=== PATIENT | female | born 1940 | race Caucasian/White ===

== ENCOUNTER → 2017-03-28 11:51 | Outpatient (CLI) | payer MEDICARE, SELFPAY ==
[2017-03-28 14:36] LABS: Absolute Lymphocyte Count 1.45 X10^3/ul (0.83-4.51); Absolute Neutrophil Count 4.4 X10^3/uL (2.0-7.7); Basophil# 0.04 X10^3/uL; Basophil% 0.6 % (0-1); Eosinophil# 0.15 X10^3/uL; Eosinophils% 2.2 % (0-5); Hematocrit 40.6 % (37-47); Lymphocyte # 1.45 X10^3/ul (4.0); Lymphocyte % 21.1 % (19-41); Mean Corpuscular Hgb 30.5 pg (27.0-32.0); Mean Corpuscular Volume 95.3 fL (81-99); Monocyte# 0.83 X10^3/uL; Monocyte% 12.1 % (0-10); Neutrophil # 4.38 X10^3/uL (2.7-7.7); Neutrophil % 63.9 % (47-70); Platelet Count 280 K/mm3 (150-450); RBC Distribution Width CV 14.8 % (11.6-14.6); Red Blood Count 4.26 M/mm3 (4.2-5.4); White Blood Count 6.9 K/mm3 (4.4-11.0)
[2017-03-28 14:40] LABS: POSITIVE COUNT NO; POSITIVE DIFFERENTIAL NO; POSITIVE MORPHOLOGY NO
[2017-03-28 14:48] LABS: ALB/GLOB Ratio 0.8 RATIO (0.9-2.4); AST(SGOT) 18 U/L (15-37); Alanine Aminotransfer ALT/SGPT 22 U/L (13-56); Albumin, Serum 3.3 g/dL (3.2-5.0); Alkaline Phosphatase 109 U/L (45-117); Anion Gap 6 (5-15); BUN 14 mg/dL (7-18); BUN/Creat Ratio 18.1 RATIO (10-20); Calcium,Total 8.9 mg/dL (8.5-10.1); Chloride 103 mmol/L (98-107); Creatinine, Serum 0.77 mg/dL (0.55-1.02); EST Glomerular Filtration Rate 77 mL/min (>60); Est Glom Filt Rate - Afr Amer 94 mL/min (>60); Glucose 77 mg/dL (70-110); Potassium 4.6 mmol/L (3.5-5.1); Protein, Total 7.3 g/dL (6.4-8.2); Sodium Level 139 mmol/L (136-145)
== END ==
PROVIDERS: Family Provider Internal Medicine; PCP Internal Medicine; Visit Provider Internal Medicine Rheumatology
DX: M06.09 Rheumatoid arthritis without rheumatoid factor, multiple sites (principal); Z79.899 Other long term (current) drug therapy; H35.30 Unspecified macular degeneration; I48.0 Paroxysmal atrial fibrillation; Z95.0 Presence of cardiac pacemaker; I10 Essential (primary) hypertension; E78.5 Hyperlipidemia, unspecified; G47.33 Obstructive sleep apnea (adult) (pediatric)
CPT/HCPCS: 36415; 80053; 85025

== ENCOUNTER → 2017-06-21 11:39 | Outpatient (CLI) | payer MEDICARE, SELFPAY ==
[2017-06-21 14:09] LABS: Absolute Lymphocyte Count 1.69 X10^3/ul (0.83-4.51); Absolute Neutrophil Count 4.5 X10^3/uL (2.0-7.7); Basophil# 0.02 X10^3/uL; Basophil% 0.3 % (0-1); Eosinophil# 0.05 X10^3/uL; Eosinophils% 0.7 % (0-5); Hematocrit 44.7 % (37-47); Hemoglobin 13.8 g/dl (12.0-15.0); Lymphocyte # 1.69 X10^3/ul (4.0); Mean Corp Hgb Conc 30.9 g/gl (32-36); Mean Corpuscular Hgb 30.3 pg (27.0-32.0); Mean Corpuscular Volume 98.2 fL (81-99); Mean Platelet Vol. 10.1 fl (6.2-12.0); Monocyte% 7.4 % (0-10); Neutrophil % 66.5 % (47-70); Platelet Count 240 K/mm3 (150-450); RBC Distribution Width SD 53.6 fl (35.1-43.9); Red Blood Count 4.55 M/mm3 (4.2-5.4); White Blood Count 6.8 K/mm3 (4.4-11.0)
[2017-06-21 14:12] LABS: POSITIVE COUNT NO; POSITIVE DIFFERENTIAL NO; POSITIVE MORPHOLOGY NO
[2017-06-21 14:23] LABS: ALB/GLOB Ratio 0.9 RATIO (0.9-2.4); AST(SGOT) 26 U/L (15-37); Alanine Aminotransfer ALT/SGPT 23 U/L (13-56); Albumin, Serum 3.6 g/dL (3.2-5.0); Alkaline Phosphatase 116 U/L (45-117); Anion Gap 8 (5-15); BUN 11 mg/dL (7-18); BUN/Creat Ratio 12.8 RATIO (10-20); Calcium,Total 9.6 mg/dL (8.5-10.1); Chloride 107 mmol/L (98-107); Creatinine, Serum 0.86 mg/dL (0.55-1.02); EST Glomerular Filtration Rate 68 mL/min (>60); Est Glom Filt Rate - Afr Amer 83 mL/min (>60); Globulin 4.1 g/dL (2.2-4.2); Glucose 80 mg/dL (74-106); Potassium 4.5 mmol/L (3.5-5.1); Protein, Total 7.7 g/dL (6.4-8.2); Sodium Level 143 mmol/L (136-145)
== END ==
PROVIDERS: Family Provider Internal Medicine; PCP Internal Medicine; Visit Provider Internal Medicine Rheumatology
DX: M06.09 Rheumatoid arthritis without rheumatoid factor, multiple sites (principal); Z79.899 Other long term (current) drug therapy; H35.30 Unspecified macular degeneration; I48.0 Paroxysmal atrial fibrillation; Z95.0 Presence of cardiac pacemaker; I10 Essential (primary) hypertension; E78.5 Hyperlipidemia, unspecified; G47.33 Obstructive sleep apnea (adult) (pediatric)
CPT/HCPCS: 36415; 80053; 85025

== ENCOUNTER → 2018-06-06 | Outpatient (CLI) | payer MEDICARE, SELFPAY ==
[2016-02-23 14:16] VITALS: BMI 24.9
[2018-06-06 09:40] LABS: International Normalized Ratio 2.1; Prothrombin Time (Protime)PT. 23.5 SECONDS (11.7-14.9)
== END | disposition home or self-care (01) ==
LOC: LABSPEC 09:17
PROVIDERS: Family Provider Internal Medicine; PCP Internal Medicine; Referring Provider Internal Medicine; Visit Provider Internal Medicine
DX: I48.0 Paroxysmal atrial fibrillation (principal); Z79.01 Long term (current) use of anticoagulants
CPT/HCPCS: 85610

== ENCOUNTER 2018-11-22 11:43 | Outpatient (RCR) | payer MEDICARE, SELFPAY ==
[2018-11-22 10:37] VITALS: BMI 25.4
[2018-11-22 12:44] LABS: International Normalized Ratio 2.4; Prothrombin Time (Protime)PT. 26.1 SECONDS (11.7-14.9)
== END 2018-11-27 18:00 | disposition home or self-care (01) ==
LOC: LAB 11:43
PROVIDERS: Family Provider Internal Medicine; PCP Internal Medicine; Referring Provider Internal Medicine Cardiovascular Disease; Visit Provider Internal Medicine Cardiovascular Disease
DX: I48.0 Paroxysmal atrial fibrillation (principal)
CPT/HCPCS: 36415; 85610

== ENCOUNTER → 2018-12-12 10:49 | Outpatient (CLI) | payer MEDICARE, SELFPAY ==
[2018-11-22 10:37] VITALS: BMI 25.4
--- NOTE | 2018-12-12 10:52 | ECHOD_ITS ---
Reason For Study: MVP Procedure This was a 2D Doppler, Color Flow transthoracic echocardiogram. The exam was of adequate technical quality. Exam performed in department. Left Ventricle Normal LV size. Left ventricular systolic function is normal. The estimated ejection fraction is 55 %. Unable to assess diastolic dysfunction. No regional wall motion abnormalities noted. Right Ventricle Normal RV size. ICD or pacer leads identified within the right ventricle. Normal systolic function. Atria The left atrium is moderately enlarged. The right atrium is mildly enlarged. ICD or pacer leads identified within the right atrium. No doppler evidence for ASD. Mitral Valve There is no mitral annular calcification. Moderate diffuse mitral valve thickening. Myxomatous mitral valve. Moderate mitral valve prolapse. Moderately severe (3+) mitral valve insufficiency. Tricuspid Valve Mild diffuse thickening of the tricuspid valve. Moderate (2+) tricuspid valve insufficiency. Right ventricular systolic pressure estimated to be 32 mmHg. Aortic Valve Trisinus/trileaflet aortic valve. Mild diffuse aortic valve thickening. Pulmonic Valve The pulmonic valve is not well visualized. Mild (1+) eccentric pulmonic valve insufficiency. Great Vessels Normal sized aortic root. Pericardium/Pleural No pericardial effusion. MMode/2D Measurements & Calculations LVIDd: 3.6 cm IVSd: 1.1 cm Ao root diam: 3.2 cm LVIDs: 2.5 cm LVPWd: 1.2 cm RVDd: 3.3 cm FS: 30.1 % LAV(MOD-bp): 63.2 ml LA A4 area: 18.2 cm2 LA dimension(2D): 4.3 cm LAV(MOD-bp) Indexed: 39.3 ml/m2 LAV(MOD-sp2): 67.7 ml LAV(MOD-sp4): 51.9 ml RA A4 area: 16.9 cm2 Doppler Measurements & Calculations Ao V2 max: 68.1 cm/sec LV V1 max: 53.7 cm/sec PA V2 max: 64.0 cm/sec Ao max P.9 mmHg LV V1 max P.2 mmHg PI end-d sylvester: 104.0 cm/sec TR max sylvester: 267.1 cm/sec TR max P.6 mmHg Interpretation Summary Left ventricular systolic function is normal. The estimated ejection fraction is 55 %. The left atrium is moderately enlarged. The right atrium is mildly enlarged. Myxomatous mitral valve. Moderate diffuse mitral valve thickening. Moderate mitral valve prolapse. Moderately severe (3+) mitral valve insufficiency. Mild diffuse thickening of the tricuspid valve. Moderate (2+) tricuspid valve insufficiency. Mild diffuse aortic valve thickening. Mild (1+) eccentric pulmonic valve insufficiency. Right ventricular systolic pressure estimated to be 32 mmHg. Unable to assess diastolic dysfunction. ICD or pacer leads identified within the right atrium ICD or pacer leads identified within the right ventricle. Ordering Physician: Leighton Moreno Referring Physician: JOSSELIN MAYERS Performed By: Yadira Mar, RDCS, RVT
== END ==
PROVIDERS: Family Provider Internal Medicine; PCP Internal Medicine; Referring Provider Internal Medicine Cardiovascular Disease; Visit Provider Internal Medicine Cardiovascular Disease
DX: I48.0 Paroxysmal atrial fibrillation (principal); I34.1 Nonrheumatic mitral (valve) prolapse
CPT/HCPCS: 93306

== ENCOUNTER 2018-12-19 11:33 | Outpatient (RCR) | payer MEDICARE, SELFPAY ==
[2018-12-19 13:12] LABS: International Normalized Ratio 2.5; Prothrombin Time (Protime)PT. 26.6 SECONDS (11.7-14.9)
== END 2018-12-19 18:00 | disposition home or self-care (01) ==
LOC: LAB 11:33
PROVIDERS: Family Provider Internal Medicine; PCP Internal Medicine; Referring Provider Internal Medicine Cardiovascular Disease; Visit Provider Internal Medicine Cardiovascular Disease
DX: I48.0 Paroxysmal atrial fibrillation (principal)
CPT/HCPCS: 36415; 85610

== ENCOUNTER 2019-01-18 11:17 | Outpatient (RCR) | payer MEDICARE, SELFPAY ==
[2019-01-18 12:56] LABS: International Normalized Ratio 2.5; Prothrombin Time (Protime)PT. 27.1 SECONDS (11.7-14.9)
== END 2019-01-18 18:00 | disposition home or self-care (01) ==
LOC: LAB 11:17
PROVIDERS: Family Provider Internal Medicine; PCP Internal Medicine; Referring Provider Internal Medicine Cardiovascular Disease; Visit Provider Internal Medicine Cardiovascular Disease
DX: I48.0 Paroxysmal atrial fibrillation (principal)
CPT/HCPCS: 36415; 85610

== ENCOUNTER 2019-02-15 15:29 | Outpatient (RCR) | payer MEDICARE, SELFPAY ==
[2019-02-15 17:47] LABS: International Normalized Ratio 2.8; Prothrombin Time (Protime)PT. 29.2 SECONDS (11.7-14.9)
== END 2019-02-15 18:00 | disposition home or self-care (01) ==
LOC: LAB 15:29
PROVIDERS: Family Provider Internal Medicine; PCP Internal Medicine; Referring Provider Internal Medicine Cardiovascular Disease; Visit Provider Internal Medicine Cardiovascular Disease
DX: I48.0 Paroxysmal atrial fibrillation (principal)
CPT/HCPCS: 36415; 85610

== ENCOUNTER 2019-03-15 11:06 | Outpatient (RCR) | payer MEDICARE, SELFPAY ==
[2019-03-15 11:38] LABS: Prothrombin Time (Protime)PT. 22.6 SECONDS (11.7-14.9)
== END 2019-03-15 18:00 | disposition home or self-care (01) ==
LOC: LAB 11:06
PROVIDERS: Family Provider Internal Medicine; PCP Internal Medicine; Referring Provider Internal Medicine Cardiovascular Disease; Visit Provider Internal Medicine Cardiovascular Disease
DX: I48.0 Paroxysmal atrial fibrillation (principal)
CPT/HCPCS: 36415; 85610

== ENCOUNTER 2019-04-11 11:53 | Outpatient (RCR) | payer MEDICARE, SELFPAY ==
[2019-04-11 12:47] LABS: International Normalized Ratio 2.3
== END 2019-04-11 18:00 | disposition home or self-care (01) ==
LOC: LAB 11:53
PROVIDERS: Family Provider Internal Medicine; PCP Internal Medicine; Referring Provider Internal Medicine Cardiovascular Disease; Visit Provider Internal Medicine Cardiovascular Disease
DX: I48.0 Paroxysmal atrial fibrillation (principal)
CPT/HCPCS: 36415; 85610

== ENCOUNTER 2019-05-09 13:07 | Outpatient (RCR) | payer MEDICARE, SELFPAY ==
[2019-05-09 14:21] LABS: International Normalized Ratio 2.2; Prothrombin Time (Protime)PT. 24.2 SECONDS (11.7-14.9)
== END 2019-05-09 18:00 | disposition home or self-care (01) ==
LOC: LAB 13:07
PROVIDERS: Family Provider Internal Medicine; PCP Internal Medicine; Referring Provider Internal Medicine Cardiovascular Disease; Visit Provider Internal Medicine Cardiovascular Disease
DX: I48.0 Paroxysmal atrial fibrillation (principal)
CPT/HCPCS: 36415; 85610

== ENCOUNTER 2019-06-20 09:59 | Outpatient (RCR) | payer MEDICARE, SELFPAY ==
[2019-06-20 11:07] LABS: International Normalized Ratio 2.4; Prothrombin Time (Protime)PT. 25.4 SECONDS (11.7-14.9)
== END 2019-06-28 18:00 | disposition home or self-care (01) ==
LOC: LAB 09:59
PROVIDERS: Family Provider Internal Medicine; PCP Internal Medicine; Referring Provider Internal Medicine Cardiovascular Disease; Visit Provider Internal Medicine Cardiovascular Disease
DX: I48.0 Paroxysmal atrial fibrillation (principal)
CPT/HCPCS: 36415; 85610

== ENCOUNTER 2019-07-18 10:46 | Outpatient (RCR) | payer MEDICARE, SELFPAY ==
[2019-07-18 11:36] LABS: International Normalized Ratio 2.2; Prothrombin Time (Protime)PT. 24.2 SECONDS (11.7-14.9)
== END 2019-07-18 18:00 | disposition home or self-care (01) ==
LOC: LAB 10:46
PROVIDERS: Family Provider Internal Medicine; PCP Internal Medicine; Referring Provider Internal Medicine Cardiovascular Disease; Visit Provider Internal Medicine Cardiovascular Disease
DX: I48.0 Paroxysmal atrial fibrillation (principal)
CPT/HCPCS: 36415; 85610

== ENCOUNTER 2019-08-15 11:16 | Outpatient (RCR) | payer MEDICARE, SELFPAY ==
[2019-08-15 12:13] LABS: International Normalized Ratio 2.2
== END 2019-08-15 18:00 | disposition home or self-care (01) ==
LOC: LAB 11:16
PROVIDERS: Family Provider Internal Medicine; PCP Internal Medicine; Referring Provider Internal Medicine Cardiovascular Disease; Visit Provider Internal Medicine Cardiovascular Disease
DX: I48.0 Paroxysmal atrial fibrillation (principal)
CPT/HCPCS: 36415; 85610

== ENCOUNTER 2019-09-13 14:24 | Outpatient (RCR) | payer MEDICARE, SELFPAY ==
[2019-08-20 10:42] VITALS: BMI 24.7
[2019-09-13 16:08] LABS: Prothrombin Time (Protime)PT. 21.9 SECONDS (11.7-14.9)
== END 2019-09-13 18:00 | disposition home or self-care (01) ==
LOC: LAB 14:24
PROVIDERS: Family Provider Internal Medicine; PCP Internal Medicine; Referring Provider Internal Medicine Cardiovascular Disease; Visit Provider Internal Medicine Cardiovascular Disease
DX: I48.0 Paroxysmal atrial fibrillation (principal)
CPT/HCPCS: 36415; 85610

== ENCOUNTER 2019-10-10 10:41 | Outpatient (RCR) | payer MEDICARE, SELFPAY ==
[2019-08-20 10:42] VITALS: BMI 24.7
[2019-10-10 11:47] LABS: International Normalized Ratio 2.1; Prothrombin Time (Protime)PT. 23.4 SECONDS (11.7-14.9)
== END 2019-10-29 18:00 | disposition home or self-care (01) ==
LOC: LAB 10:41
PROVIDERS: Family Provider Internal Medicine; PCP Internal Medicine; Referring Provider Internal Medicine Cardiovascular Disease; Visit Provider Internal Medicine Cardiovascular Disease
DX: I48.0 Paroxysmal atrial fibrillation (principal)
CPT/HCPCS: 36415; 85610

== ENCOUNTER 2019-11-07 10:42 | Outpatient (RCR) | payer MEDICARE, SELFPAY ==
[2019-08-20 10:42] VITALS: BMI 24.7
[2019-11-07 11:31] LABS: International Normalized Ratio 2.4; Prothrombin Time (Protime)PT. 26.1 SECONDS (11.7-14.9)
== END 2019-11-07 18:00 | disposition home or self-care (01) ==
LOC: LAB 10:42
PROVIDERS: Family Provider Internal Medicine; PCP Internal Medicine; Referring Provider Internal Medicine Cardiovascular Disease; Visit Provider Internal Medicine Cardiovascular Disease
DX: I48.0 Paroxysmal atrial fibrillation (principal)
CPT/HCPCS: 36415; 85610

== ENCOUNTER 2019-12-05 10:36 | Outpatient (RCR) | payer MEDICARE, SELFPAY ==
[2019-11-21 13:41] VITALS: BMI 25.0
[2019-12-05 11:33] LABS: International Normalized Ratio 2.7; Prothrombin Time (Protime)PT. 28.1 SECONDS (11.7-14.9)
== END 2019-12-05 18:00 | disposition home or self-care (01) ==
LOC: LAB 10:36
PROVIDERS: Family Provider Internal Medicine; PCP Internal Medicine; Referring Provider Internal Medicine Cardiovascular Disease; Visit Provider Internal Medicine Cardiovascular Disease
DX: I48.0 Paroxysmal atrial fibrillation (principal)
CPT/HCPCS: 36415; 85610

== ENCOUNTER 2020-01-02 11:46 | Outpatient (RCR) | payer MEDICARE, SELFPAY ==
[2019-11-21 13:41] VITALS: BMI 25.0
[2020-01-02 12:07] LABS: Prothrombin Time (Protime)PT. 21.7 SECONDS (11.7-14.9)
== END 2020-01-02 18:00 | disposition home or self-care (01) ==
LOC: LAB 11:46
PROVIDERS: Family Provider Internal Medicine; PCP Internal Medicine; Referring Provider Internal Medicine Cardiovascular Disease; Visit Provider Internal Medicine Cardiovascular Disease
DX: I48.0 Paroxysmal atrial fibrillation (principal); Z79.01 Long term (current) use of anticoagulants
CPT/HCPCS: 36415; 85610

== ENCOUNTER 2020-02-01 10:28 | Outpatient (RCR) | payer MEDICARE, SELFPAY ==
[2019-11-21 13:41] VITALS: BMI 25.0
[2020-02-01 11:19] LABS: International Normalized Ratio 2.9; Prothrombin Time (Protime)PT. 30.1 SECONDS (11.7-14.9)
== END 2020-02-01 18:00 | disposition home or self-care (01) ==
LOC: LAB 10:28
PROVIDERS: Family Provider Internal Medicine; PCP Internal Medicine; Referring Provider Internal Medicine Cardiovascular Disease; Visit Provider Internal Medicine Cardiovascular Disease
DX: I48.0 Paroxysmal atrial fibrillation (principal); Z79.01 Long term (current) use of anticoagulants
CPT/HCPCS: 36415; 85610

== ENCOUNTER 2020-03-18 14:59 | Outpatient (RCR) | payer MEDICARE, SELFPAY ==
[2019-11-21 13:41] VITALS: BMI 25.0
[2020-03-05 16:50] LABS: International Normalized Ratio 1.9; Prothrombin Time (Protime)PT. 21.3 SECONDS (11.7-14.9)
[2020-03-18 15:59] LABS: International Normalized Ratio 1.9; Prothrombin Time (Protime)PT. 21.3 SECONDS (11.7-14.9)
== END 2020-03-18 18:00 | disposition home or self-care (01) ==
LOC: LAB 14:59
PROVIDERS: Family Provider Internal Medicine; PCP Internal Medicine; Referring Provider Internal Medicine Cardiovascular Disease; Visit Provider Internal Medicine Cardiovascular Disease
DX: I48.0 Paroxysmal atrial fibrillation (principal); Z79.01 Long term (current) use of anticoagulants
CPT/HCPCS: 36415; 85610

== ENCOUNTER 2020-04-23 12:58 | Outpatient (RCR) | payer MEDICARE, SELFPAY ==
[2019-11-21 13:41] VITALS: BMI 25.0
[2020-04-02 12:17] LABS: International Normalized Ratio 2.7; Prothrombin Time (Protime)PT. 27.9 SECONDS (11.7-14.9)
[2020-04-23 15:04] LABS: International Normalized Ratio 1.8; Prothrombin Time (Protime)PT. 20.3 SECONDS (11.7-14.9)
== END 2020-04-23 18:00 | disposition home or self-care (01) ==
LOC: LAB 12:58
PROVIDERS: Family Provider Internal Medicine; PCP Internal Medicine; Referring Provider Internal Medicine Cardiovascular Disease; Visit Provider Internal Medicine Cardiovascular Disease
DX: I48.0 Paroxysmal atrial fibrillation (principal); Z79.01 Long term (current) use of anticoagulants
CPT/HCPCS: 36415; 85610

== ENCOUNTER 2020-05-21 10:55 | Outpatient (RCR) | payer MEDICARE, SELFPAY ==
[2019-11-21 13:41] VITALS: BMI 25.0
[2020-05-07 11:08] LABS: Prothrombin Time (Protime)PT. 21.9 SECONDS (11.7-14.9)
[2020-05-21 11:34] LABS: International Normalized Ratio 1.8; Prothrombin Time (Protime)PT. 20.6 SECONDS (11.7-14.9)
== END 2020-05-21 18:00 | disposition home or self-care (01) ==
LOC: LAB 10:55
PROVIDERS: Family Provider Internal Medicine; PCP Internal Medicine; Referring Provider Internal Medicine Cardiovascular Disease; Visit Provider Internal Medicine Cardiovascular Disease
DX: I48.0 Paroxysmal atrial fibrillation (principal); Z79.01 Long term (current) use of anticoagulants
CPT/HCPCS: 36415; 85610

== ENCOUNTER 2020-06-25 09:22 | Outpatient (RCR) | payer MEDICARE, SELFPAY ==
[2019-11-21 13:41] VITALS: BMI 25.0
[2020-06-04 15:26] LABS: International Normalized Ratio 1.9; Prothrombin Time (Protime)PT. 21.1 SECONDS (11.7-14.9)
[2020-06-11 13:30] LABS: International Normalized Ratio 2.9; Prothrombin Time (Protime)PT. 29.8 SECONDS (11.7-14.9)
[2020-06-25 09:50] LABS: International Normalized Ratio 2.3; Prothrombin Time (Protime)PT. 24.2 SECONDS (11.7-14.9)
== END 2020-06-25 18:00 | disposition home or self-care (01) ==
LOC: LAB 09:22
PROVIDERS: Family Provider Internal Medicine; PCP Internal Medicine; Referring Provider Internal Medicine Cardiovascular Disease; Visit Provider Internal Medicine Cardiovascular Disease
DX: I48.0 Paroxysmal atrial fibrillation (principal); Z79.01 Long term (current) use of anticoagulants
CPT/HCPCS: 36415; 85610

== ENCOUNTER 2020-07-16 10:28 | Outpatient (RCR) | payer MEDICARE, SELFPAY ==
[2019-11-21 13:41] VITALS: BMI 25.0
[2020-07-16 12:03] LABS: Prothrombin Time (Protime)PT. 21.6 SECONDS (11.7-14.9)
== END 2020-07-16 18:00 | disposition home or self-care (01) ==
LOC: LAB 10:28
PROVIDERS: Family Provider Internal Medicine; PCP Internal Medicine; Referring Provider Internal Medicine Cardiovascular Disease; Visit Provider Internal Medicine Cardiovascular Disease
DX: I48.0 Paroxysmal atrial fibrillation (principal); Z79.01 Long term (current) use of anticoagulants
CPT/HCPCS: 36415; 85610

== ENCOUNTER 2020-08-06 10:29 | Outpatient (RCR) | payer MEDICARE, SELFPAY ==
[2019-11-21 13:41] VITALS: BMI 25.0
[2020-08-06 11:54] LABS: International Normalized Ratio 2.4; Prothrombin Time (Protime)PT. 25.5 SECONDS (11.7-14.9)
== END 2020-08-06 18:00 | disposition home or self-care (01) ==
LOC: LAB 10:29
PROVIDERS: Family Provider Internal Medicine; PCP Internal Medicine; Referring Provider Internal Medicine Cardiovascular Disease; Visit Provider Internal Medicine Cardiovascular Disease
DX: I48.0 Paroxysmal atrial fibrillation (principal); Z79.01 Long term (current) use of anticoagulants
CPT/HCPCS: 36415; 85610

== ENCOUNTER 2020-09-03 10:22 | Outpatient (RCR) | payer MEDICARE, SELFPAY ==
[2019-11-21 13:41] VITALS: BMI 25.0
[2020-09-03 11:55] LABS: International Normalized Ratio 2.3; Prothrombin Time (Protime)PT. 24.8 SECONDS (11.7-14.9)
== END 2020-09-03 18:00 | disposition home or self-care (01) ==
LOC: LAB 10:22
PROVIDERS: Family Provider Internal Medicine; PCP Internal Medicine; Referring Provider Internal Medicine Cardiovascular Disease; Visit Provider Internal Medicine Cardiovascular Disease
DX: I48.0 Paroxysmal atrial fibrillation (principal); Z79.01 Long term (current) use of anticoagulants
CPT/HCPCS: 36415; 85610

== ENCOUNTER 2020-10-01 15:40 | Outpatient (RCR) | payer MEDICARE, SELFPAY ==
[2019-11-21 13:41] VITALS: BMI 25.0
[2020-10-01 14:46] VITALS: BMI 24.7
[2020-10-01 17:22] LABS: Prothrombin Time (Protime)PT. 30.2 SECONDS (11.7-14.9)
== END 2020-10-01 18:00 | disposition home or self-care (01) ==
LOC: LAB 15:40
PROVIDERS: Family Provider Internal Medicine; PCP Internal Medicine; Referring Provider Internal Medicine Cardiovascular Disease; Visit Provider Internal Medicine Cardiovascular Disease
DX: I48.0 Paroxysmal atrial fibrillation (principal); Z79.01 Long term (current) use of anticoagulants
CPT/HCPCS: 36415; 85610

== ENCOUNTER → 2020-10-15 12:37 | Outpatient (CLI) | payer MEDICARE, SELFPAY ==
[2020-10-01 14:46] VITALS: BMI 24.7
--- NOTE | 2020-10-15 12:39 | ECHOD_ITS ---
Reason For Study: MVP Procedure This was a 2D Doppler, Color Flow transthoracic echocardiogram. Exam performed in department. Left Ventricle Normal LV size. Left ventricular systolic function is normal. The estimated ejection fraction is 55 %. Transmitral diastolic flow velocities suggest moderate (stage 2) diastolic dysfunction (pseudonormal pattern). No regional wall motion abnormalities noted. Right Ventricle Normal RV size. ICD or pacer leads identified within the right ventricle. Normal systolic function. Atria The left atrium is moderately enlarged. The right atrium is mildly enlarged. ICD or pacer leads identified within the right atrium. No doppler evidence for ASD. Mitral Valve There is no mitral annular calcification. Moderate diffuse mitral valve thickening. Myxomatous mitral valve. Moderate mitral valve prolapse. Moderate (2+) mitral valve insufficiency. Tricuspid Valve Mild diffuse thickening of the tricuspid valve. Moderate (2+) eccentric tricuspid valve insufficiency. Right ventricular systolic pressure estimated to be 35 mmHg. Aortic Valve Trisinus/trileaflet aortic valve. Mild diffuse aortic valve thickening. Mild focal aortic valve calcification. Pulmonic Valve The pulmonic valve is not well visualized. Mild (1+) pulmonic valve insufficiency. Great Vessels Normal sized aortic root. Pericardium/Pleural No pericardial effusion. MMode/2D Measurements & Calculations LVIDd: 4.2 cm IVSd: 1.2 cm Ao root diam: 3.1 cm LVIDs: 2.5 cm LVPWd: 1.2 cm RVDd: 3.4 cm FS: 40.4 % LAV(MOD-bp): 56.8 ml LVAd ap4: 20.5 cm2 SV(MOD-sp4): 31.1 ml LAV(MOD-bp) Indexed: 36.1 ml/m2 LVLd ap4: 6.3 cm LAV(MOD-sp2): 59.2 ml EDV(MOD-sp4): 55.1 ml LAV(MOD-sp4): 50.2 ml EDV(sp4-el): 56.4 ml LVAs ap4: 12.4 cm2 LVLs ap4: 5.3 cm ESV(MOD-sp4): 24.0 ml ESV(sp4-el): 24.7 ml EF(MOD-sp4): 56.4 % EF(sp4-el): 56.1 % SV(sp4-el): 31.7 ml LA A4 area: 19.1 cm2 LA dimension(2D): 4.3 cm RA A4 area: 17.0 cm2 Doppler Measurements & Calculations MV E max adolfo: 91.0 cm/sec Lat Peak E' Adolfo: 6.4 cm/sec Med Peak E' Adolfo: 5.7 cm/sec MV A max adolfo: 75.9 cm/sec E/E' lat: 14.2 E/E' med: 16.0 MV E/A: 1.2 Ao V2 max: 66.9 cm/sec LV V1 max: 56.2 cm/sec PA V2 max: 58.7 cm/sec Ao max P.8 mmHg LV V1 max P.3 mmHg Ao V2 mean: 51.1 cm/sec Ao mean P.1 mmHg Ao V2 VTI: 16.5 cm TR max adolfo: 284.6 cm/sec TR max P.4 mmHg ECHO/Echo Complete Interpretation Summary Left ventricular systolic function is normal. The estimated ejection fraction is 55 %. The left atrium is moderately enlarged. The right atrium is mildly enlarged. Myxomatous mitral valve. Moderate mitral valve prolapse. Moderate diffuse mitral valve thickening. Moderate (2+) mitral valve insufficiency. Mild diffuse thickening of the tricuspid valve. Moderate (2+) eccentric tricuspid valve insufficiency. Mild diffuse aortic valve thickening. Mild focal aortic valve calcification. Mild (1+) pulmonic valve insufficiency. Right ventricular systolic pressure estimated to be 35 mmHg. Transmitral diastolic flow velocities suggest diastolic dysfunction (pseudonorm al pattern). ICD or pacer leads identified within the right atrium ICD or pacer leads identified within the right ventricle. Ordering Physician: Leighton Moreno Referring Physician: Martha Norton Performed By: Nel Avila, RDCS, RVT
== END ==
PROVIDERS: PCP Internal Medicine; Referring Provider Internal Medicine Cardiovascular Disease; Visit Provider Internal Medicine Cardiovascular Disease
DX: I34.0 Nonrheumatic mitral (valve) insufficiency (principal)
CPT/HCPCS: 93306

== ENCOUNTER 2020-11-26 10:22 | Outpatient (RCR) | payer MEDICARE, SELFPAY ==
[2020-10-29 00:33] VITALS: BMI 24.7
[2020-10-29 11:48] LABS: International Normalized Ratio 2.8; Prothrombin Time (Protime)PT. 28.7 SECONDS (11.7-14.9)
[2020-11-26 12:24] LABS: International Normalized Ratio 2.9; Prothrombin Time (Protime)PT. 29.9 SECONDS (11.7-14.9)
== END 2020-11-26 18:00 | disposition home or self-care (01) ==
LOC: LAB 10:22
PROVIDERS: Family Provider Internal Medicine; PCP Internal Medicine; Referring Provider Internal Medicine Cardiovascular Disease; Visit Provider Internal Medicine Cardiovascular Disease
DX: I48.0 Paroxysmal atrial fibrillation (principal); Z79.01 Long term (current) use of anticoagulants
CPT/HCPCS: 36415; 85610

== ENCOUNTER 2020-12-24 12:03 | Outpatient (RCR) | payer MEDICARE, SELFPAY ==
[2020-11-28 00:35] VITALS: BMI 24.7
[2020-12-24 13:55] LABS: Prothrombin Time (Protime)PT. 22.1 SECONDS (11.7-14.9)
== END 2020-12-28 05:04 | disposition home or self-care (01) ==
LOC: LAB 12:03
PROVIDERS: Family Provider Internal Medicine; PCP Internal Medicine; Referring Provider Internal Medicine Cardiovascular Disease; Visit Provider Internal Medicine Cardiovascular Disease
DX: I48.0 Paroxysmal atrial fibrillation (principal); Z79.01 Long term (current) use of anticoagulants
CPT/HCPCS: 36415; 85610

== ENCOUNTER 2021-01-21 10:50 | Outpatient (RCR) | payer MEDICARE, SELFPAY ==
[2020-12-28 05:04] VITALS: BMI 24.7
[2021-01-21 11:32] LABS: International Normalized Ratio 1.7; Prothrombin Time (Protime)PT. 18.9 SECONDS (11.7-14.9)
== END 2021-01-27 18:00 | disposition home or self-care (01) ==
LOC: LAB 10:50
PROVIDERS: Family Provider Internal Medicine; PCP Internal Medicine; Referring Provider Internal Medicine Cardiovascular Disease; Visit Provider Internal Medicine Cardiovascular Disease
DX: I48.0 Paroxysmal atrial fibrillation (principal); Z79.01 Long term (current) use of anticoagulants
CPT/HCPCS: 36415; 85610

== ENCOUNTER 2021-02-25 10:34 | Outpatient (RCR) | payer MEDICARE, SELFPAY ==
[2021-01-28 03:48] VITALS: BMI 24.7
[2021-01-28 11:35] LABS: International Normalized Ratio 2.5; Prothrombin Time (Protime)PT. 26.5 SECONDS (11.7-14.9)
[2021-02-11 11:07] LABS: International Normalized Ratio 1.8; Prothrombin Time (Protime)PT. 20.4 SECONDS (11.7-14.9)
[2021-02-25 11:22] LABS: International Normalized Ratio 2.2; Prothrombin Time (Protime)PT. 23.5 SECONDS (11.7-14.9)
== END 2021-02-28 18:00 | disposition home or self-care (01) ==
LOC: LAB 10:34
PROVIDERS: Family Provider Internal Medicine; PCP Internal Medicine; Referring Provider Internal Medicine Cardiovascular Disease; Visit Provider Internal Medicine Cardiovascular Disease
DX: I48.0 Paroxysmal atrial fibrillation (principal); Z79.01 Long term (current) use of anticoagulants
CPT/HCPCS: 36415; 85610

== ENCOUNTER 2021-03-18 10:47 | Outpatient (RCR) | payer MEDICARE, SELFPAY ==
[2021-03-02 02:33] VITALS: BMI 24.7
[2021-03-18 11:17] LABS: International Normalized Ratio 2.5; Prothrombin Time (Protime)PT. 25.8 SECONDS (11.7-14.9)
== END 2021-03-30 18:00 | disposition home or self-care (01) ==
LOC: LAB 10:47
PROVIDERS: Family Provider Internal Medicine; PCP Internal Medicine; Referring Provider Internal Medicine Cardiovascular Disease; Visit Provider Internal Medicine Cardiovascular Disease
DX: I48.0 Paroxysmal atrial fibrillation (principal); Z79.01 Long term (current) use of anticoagulants
CPT/HCPCS: 36415; 85610

== ENCOUNTER 2021-04-15 13:59 | Outpatient (RCR) | payer MEDICARE, SELFPAY ==
[2021-03-31 02:22] VITALS: BMI 24.7
[2021-04-15 14:26] LABS: International Normalized Ratio 2.7; Prothrombin Time (Protime)PT. 27.7 SECONDS (11.7-14.9)
== END 2021-04-15 23:59 | disposition home or self-care (01) ==
LOC: LAB 13:59
PROVIDERS: Family Provider Internal Medicine; PCP Internal Medicine; Referring Provider Internal Medicine Cardiovascular Disease; Visit Provider Internal Medicine Cardiovascular Disease
DX: I48.0 Paroxysmal atrial fibrillation (principal); Z79.01 Long term (current) use of anticoagulants
CPT/HCPCS: 36415; 85610

== ENCOUNTER 2021-05-13 10:40 | Outpatient (RCR) | payer MEDICARE, SELFPAY ==
[2021-04-28 10:30] VITALS: BMI 24.7
[2021-05-13 11:46] LABS: International Normalized Ratio 2.3; Prothrombin Time (Protime)PT. 24.3 SECONDS (11.7-14.9)
== END 2021-05-28 18:00 | disposition home or self-care (01) ==
LOC: LAB 10:40
PROVIDERS: Family Provider Internal Medicine; PCP Internal Medicine; Referring Provider Internal Medicine Cardiovascular Disease; Visit Provider Internal Medicine Cardiovascular Disease
DX: I48.0 Paroxysmal atrial fibrillation (principal); Z79.01 Long term (current) use of anticoagulants
CPT/HCPCS: 36415; 85610

== ENCOUNTER 2021-06-24 11:25 | Outpatient (RCR) | payer MEDICARE, SELFPAY ==
[2021-05-29 03:30] VITALS: BMI 24.7
[2021-06-10 11:46] LABS: International Normalized Ratio 1.9; Prothrombin Time (Protime)PT. 21.3 SECONDS (11.7-14.9)
[2021-06-24 11:45] LABS: International Normalized Ratio 2.2; Prothrombin Time (Protime)PT. 23.8 SECONDS (11.7-14.9)
== END 2021-06-24 18:00 | disposition home or self-care (01) ==
LOC: LAB 11:25
PROVIDERS: Family Provider Internal Medicine; PCP Internal Medicine; Referring Provider Internal Medicine Cardiovascular Disease; Visit Provider Internal Medicine Cardiovascular Disease
DX: I48.0 Paroxysmal atrial fibrillation (principal); Z79.01 Long term (current) use of anticoagulants
CPT/HCPCS: 36415; 85610

== ENCOUNTER 2021-07-15 14:44 | Outpatient (RCR) | payer MEDICARE, SELFPAY ==
[2021-06-28 04:39] VITALS: BMI 24.7
[2021-07-15 15:30] LABS: International Normalized Ratio 2.4; Prothrombin Time (Protime)PT. 26.1 SECONDS (11.7-14.9)
== END 2021-07-15 18:00 | disposition home or self-care (01) ==
LOC: LAB 14:44
PROVIDERS: Family Provider Internal Medicine; PCP Internal Medicine; Referring Provider Internal Medicine Cardiovascular Disease; Visit Provider Internal Medicine Cardiovascular Disease
DX: I48.0 Paroxysmal atrial fibrillation (principal); Z79.01 Long term (current) use of anticoagulants
CPT/HCPCS: 36415; 85610

== ENCOUNTER 2021-08-12 12:31 | Outpatient (RCR) | payer MEDICARE, SELFPAY ==
[2021-07-28 21:26] VITALS: BMI 24.7
[2021-08-12 13:17] LABS: International Normalized Ratio 2.3; Prothrombin Time (Protime)PT. 25.1 SECONDS (11.7-14.9)
== END 2021-08-12 23:59 | disposition home or self-care (01) ==
LOC: LAB 12:31
PROVIDERS: Family Provider Internal Medicine; PCP Internal Medicine; Referring Provider Internal Medicine Cardiovascular Disease; Visit Provider Internal Medicine Cardiovascular Disease
DX: I48.0 Paroxysmal atrial fibrillation (principal); Z79.01 Long term (current) use of anticoagulants
CPT/HCPCS: 36415; 85610

== ENCOUNTER 2021-09-23 09:09 | Outpatient (RCR) | payer MEDICARE, SELFPAY ==
[2021-08-28 07:44] VITALS: BMI 24.7
[2021-09-09 11:34] LABS: International Normalized Ratio 1.7; Prothrombin Time (Protime)PT. 19.4 SECONDS (11.7-14.9)
[2021-09-23 10:08] LABS: International Normalized Ratio 1.9; Prothrombin Time (Protime)PT. 21.8 SECONDS (11.7-14.9)
== END 2021-09-27 03:10 | disposition home or self-care (01) ==
LOC: LAB 09:09
PROVIDERS: Family Provider Internal Medicine; PCP Internal Medicine; Referring Provider Internal Medicine Cardiovascular Disease; Visit Provider Internal Medicine Cardiovascular Disease
DX: I48.0 Paroxysmal atrial fibrillation (principal); Z79.01 Long term (current) use of anticoagulants
CPT/HCPCS: 36415; 85610

== ENCOUNTER 2021-10-28 10:26 | Outpatient (RCR) | payer MEDICARE, SELFPAY ==
[2021-09-27 03:10] VITALS: BMI 24.7
[2021-10-07 12:49] LABS: International Normalized Ratio 2.2; Prothrombin Time (Protime)PT. 24.5 SECONDS (11.7-14.9)
[2021-10-28 11:23] LABS: International Normalized Ratio 1.9; Prothrombin Time (Protime)PT. 21.6 SECONDS (11.7-14.9)
== END 2021-10-28 18:00 | disposition home or self-care (01) ==
LOC: LAB 10:26
PROVIDERS: Family Provider Internal Medicine; PCP Internal Medicine; Referring Provider Internal Medicine Cardiovascular Disease; Visit Provider Internal Medicine Cardiovascular Disease
DX: I48.0 Paroxysmal atrial fibrillation (principal); Z79.01 Long term (current) use of anticoagulants
CPT/HCPCS: 36415; 85610

== ENCOUNTER 2021-11-11 10:33 | Outpatient (RCR) | payer MEDICARE, SELFPAY ==
[2021-10-29 00:22] VITALS: BMI 24.7
[2021-11-11 12:12] LABS: Prothrombin Time (Protime)PT. 22.1 SECONDS (11.7-14.9)
== END 2021-11-11 18:00 | disposition home or self-care (01) ==
LOC: LAB 10:33
PROVIDERS: Family Provider Internal Medicine; PCP Internal Medicine; Referring Provider Internal Medicine Cardiovascular Disease; Visit Provider Internal Medicine Cardiovascular Disease
DX: I48.0 Paroxysmal atrial fibrillation (principal); Z79.01 Long term (current) use of anticoagulants
CPT/HCPCS: 36415; 85610

== ENCOUNTER 2021-12-16 10:48 | Outpatient (RCR) | payer MEDICARE, SELFPAY ==
[2021-11-27 23:31] VITALS: BMI 24.7
[2021-12-02 11:55] LABS: International Normalized Ratio 1.9; Prothrombin Time (Protime)PT. 21.9 SECONDS (11.7-14.9)
[2021-12-16 11:36] LABS: International Normalized Ratio 2.4; Prothrombin Time (Protime)PT. 25.7 SECONDS (11.7-14.9)
== END 2021-12-16 18:00 | disposition home or self-care (01) ==
LOC: LAB 10:48
PROVIDERS: Family Provider Internal Medicine; PCP Internal Medicine; Referring Provider Internal Medicine Cardiovascular Disease; Visit Provider Internal Medicine Cardiovascular Disease
DX: I48.0 Paroxysmal atrial fibrillation (principal); Z79.01 Long term (current) use of anticoagulants
CPT/HCPCS: 36415; 85610

== ENCOUNTER 2022-01-06 10:32 | Outpatient (RCR) | payer MEDICARE, SELFPAY ==
[2021-12-29 10:17] VITALS: BMI 24.7
[2022-01-06 11:20] LABS: International Normalized Ratio 2.5; Prothrombin Time (Protime)PT. 26.2 SECONDS (11.7-14.9)
== END 2022-01-27 18:00 | disposition home or self-care (01) ==
LOC: LAB 10:32
PROVIDERS: Family Provider Internal Medicine; PCP Internal Medicine; Referring Provider Internal Medicine Cardiovascular Disease; Visit Provider Internal Medicine Cardiovascular Disease
DX: I48.0 Paroxysmal atrial fibrillation (principal); Z79.01 Long term (current) use of anticoagulants
CPT/HCPCS: 36415; 85610

== ENCOUNTER 2022-02-03 10:59 | Outpatient (RCR) | payer MEDICARE, SELFPAY ==
[2022-01-28 01:28] VITALS: BMI 24.7
[2022-02-03 11:57] LABS: International Normalized Ratio 2.2; Prothrombin Time (Protime)PT. 24.2 SECONDS (11.7-14.9)
== END 2022-02-03 18:00 | disposition home or self-care (01) ==
LOC: LAB 10:59
PROVIDERS: Family Provider Internal Medicine; PCP Internal Medicine; Referring Provider Internal Medicine Cardiovascular Disease; Visit Provider Internal Medicine Cardiovascular Disease
DX: I48.0 Paroxysmal atrial fibrillation (principal); Z79.01 Long term (current) use of anticoagulants
CPT/HCPCS: 36415; 85610

== ENCOUNTER 2022-03-03 10:47 | Outpatient (RCR) | payer MEDICARE, SELFPAY ==
[2022-02-28 05:26] VITALS: BMI 24.7
[2022-03-03 11:29] LABS: International Normalized Ratio 2.6; Prothrombin Time (Protime)PT. 27.5 SECONDS (11.7-14.9)
== END 2022-03-03 12:00 | disposition home or self-care (01) ==
LOC: LAB 10:47
PROVIDERS: Family Provider Internal Medicine; PCP Internal Medicine; Referring Provider Internal Medicine Cardiovascular Disease; Visit Provider Internal Medicine Cardiovascular Disease
DX: I48.0 Paroxysmal atrial fibrillation (principal); Z79.01 Long term (current) use of anticoagulants
CPT/HCPCS: 36415; 85610

== ENCOUNTER 2022-03-31 09:04 | Outpatient (RCR) | payer MEDICARE, SELFPAY ==
[2022-03-31 08:30] VITALS: BMI 24.7
[2022-03-31 10:05] LABS: International Normalized Ratio 2.8; Prothrombin Time (Protime)PT. 29.3 SECONDS (11.7-14.9)
== END 2022-03-31 18:00 | disposition home or self-care (01) ==
LOC: LAB 09:04
PROVIDERS: Family Provider Internal Medicine; PCP Internal Medicine; Referring Provider Internal Medicine Cardiovascular Disease; Visit Provider Internal Medicine Cardiovascular Disease
DX: I48.0 Paroxysmal atrial fibrillation (principal); Z79.01 Long term (current) use of anticoagulants
CPT/HCPCS: 36415; 85610

== ENCOUNTER 2022-05-19 10:47 | Outpatient (RCR) | payer MEDICARE, SELFPAY ==
[2022-04-27 22:49] VITALS: BMI 24.7
[2022-04-28 13:44] LABS: Prothrombin Time (Protime)PT. 40.3 SECONDS (11.7-14.9)
[2022-04-28 15:25] LABS: International Normalized Ratio 4.2
[2022-05-03 12:25] LABS: International Normalized Ratio 2.8; Prothrombin Time (Protime)PT. 29.1 SECONDS (11.7-14.9)
[2022-05-19 12:01] LABS: International Normalized Ratio 2.3; Prothrombin Time (Protime)PT. 24.7 SECONDS (11.7-14.9)
== END 2022-05-28 21:13 | disposition home or self-care (01) ==
LOC: LAB 10:47
PROVIDERS: Family Provider Internal Medicine; PCP Internal Medicine; Referring Provider Internal Medicine Cardiovascular Disease; Visit Provider Internal Medicine Cardiovascular Disease
DX: I48.0 Paroxysmal atrial fibrillation (principal); Z79.01 Long term (current) use of anticoagulants
CPT/HCPCS: 36415; 85610

== ENCOUNTER 2022-06-23 10:20 | Outpatient (RCR) | payer MEDICARE, SELFPAY ==
[2022-05-28 21:14] VITALS: BMI 24.7
[2022-06-02 10:36] LABS: Prothrombin Time (Protime)PT. 22.2 SECONDS (11.7-14.9)
[2022-06-23 10:55] LABS: International Normalized Ratio 1.9; Prothrombin Time (Protime)PT. 21.2 SECONDS (11.7-14.9)
== END 2022-06-27 02:18 | disposition home or self-care (01) ==
LOC: LAB 10:20
PROVIDERS: Internal Medicine Cardiovascular Disease; Family Provider Internal Medicine; PCP Internal Medicine; Referring Provider Internal Medicine Cardiovascular Disease; Visit Provider Internal Medicine Cardiovascular Disease
DX: I48.0 Paroxysmal atrial fibrillation (principal); Z79.01 Long term (current) use of anticoagulants
CPT/HCPCS: 36415; 85610

== ENCOUNTER → 2022-07-16 | Outpatient (CLI) | payer MEDICARE, SELFPAY ==
--- NOTE | 2022-07-16 16:27 | STRESSREP ---
Stress Test Report Pharmacologic myocardial perfusion stress test. 82-year-old lady with a history of atrial fibrillation Resting EKG demonstrates atrial paced rhythm with a rate of 65 bpm. Resting blood pressure is 150/90 mmHg. 0.4 mg of regadenoson was infused per usual protocol followed by rapid intravenous saline flush injection. Continuous EKG monitoring was performed. The maximum heart rate was 76 bpm which was 54% of max impacted heart rate the maximum workload was 1 metabolic equivalent. At rest there were no ST or T wave changes noted to suggest ischemia and at peak infusion nonspecific ST changes were noted which did not meet the criteria for ischemia. No clinical angina is noted. The final blood pressure was 134/70 mmHg. Myocardial perfusion protocol. 11.7 mCi of technetium 99m sestamibi was injected at rest. 0.4 mg of regadenoson was infused per usual protocol. At peak infusion 32.8 mCi of technetium 99m sestamibi was injected stress images were obtained stress and rest images were reconstructed and compared in the short axis vertical long and horizontal long axis. Gated images were also obtained. Perfusion SPECT analysis: Review of the stress images demonstrate normal uptake of tracer noted in all areas of the myocardium. The resting images similar demonstrated normal uptake of tracer noted in all areas of the myocardium. No areas of reversibility are noted to suggest ischemia and no previous infarct is noted. Gated SPECT analysis: The gated ejection fraction is 70%. Conclusion: Normal pharmacologic myocardial perfusion stress test. Preserved ejection fraction.
== END | disposition home or self-care (01) ==
LOC: CVS 06:50
PROVIDERS: PCP Internal Medicine; Referring Provider Nurse Practitioner Gerontology; Visit Provider Nurse Practitioner Gerontology
DX: I48.0 Paroxysmal atrial fibrillation (principal); R94.31 Abnormal electrocardiogram [ECG] [EKG]
CPT/HCPCS: 78452; 93017; A9500; A4216; J2785

== ENCOUNTER 2022-07-21 10:26 | Outpatient (RCR) | payer MEDICARE, SELFPAY ==
[2022-06-27 02:18] VITALS: BMI 24.7
[2022-07-07 13:51] LABS: International Normalized Ratio 1.6; Prothrombin Time (Protime)PT. 18.7 SECONDS (11.7-14.9)
[2022-07-15 11:10] LABS: International Normalized Ratio 1.9; Prothrombin Time (Protime)PT. 21.5 SECONDS (11.7-14.9)
[2022-07-21 11:47] LABS: International Normalized Ratio 1.9; Prothrombin Time (Protime)PT. 21.9 SECONDS (11.7-14.9)
== END 2022-07-21 12:00 | disposition home or self-care (01) ==
LOC: LAB 10:26
PROVIDERS: Family Provider Internal Medicine; PCP Internal Medicine; Referring Provider Internal Medicine Cardiovascular Disease; Visit Provider Internal Medicine Cardiovascular Disease
DX: I48.0 Paroxysmal atrial fibrillation (principal); Z79.01 Long term (current) use of anticoagulants
CPT/HCPCS: 36415; 85610

== ENCOUNTER 2022-08-18 10:48 | Outpatient (RCR) | payer MEDICARE, SELFPAY ==
[2022-07-29 08:23] VITALS: BMI 24.7
[2022-08-04 11:12] LABS: International Normalized Ratio 2.1; Prothrombin Time (Protime)PT. 23.7 SECONDS (11.7-14.9)
[2022-08-18 11:50] LABS: International Normalized Ratio 2.5; Prothrombin Time (Protime)PT. 27.1 SECONDS (11.7-14.9)
== END 2022-08-18 18:00 | disposition home or self-care (01) ==
LOC: LAB 10:48
PROVIDERS: Family Provider Internal Medicine; PCP Internal Medicine; Referring Provider Internal Medicine Cardiovascular Disease; Visit Provider Internal Medicine Cardiovascular Disease
DX: I48.0 Paroxysmal atrial fibrillation (principal); Z79.01 Long term (current) use of anticoagulants
CPT/HCPCS: 36415; 85610

== ENCOUNTER 2022-09-22 12:07 | Outpatient (RCR) | payer MEDICARE, SELFPAY ==
[2022-08-28 01:38] VITALS: BMI 24.7
[2022-09-09 12:43] LABS: International Normalized Ratio 1.7
[2022-09-22 12:47] LABS: International Normalized Ratio 1.9; Prothrombin Time (Protime)PT. 21.9 SECONDS (11.7-14.9)
== END 2022-09-27 18:00 | disposition home or self-care (01) ==
LOC: LAB 12:07
PROVIDERS: Family Provider Internal Medicine; PCP Internal Medicine; Referring Provider Internal Medicine Cardiovascular Disease; Visit Provider Internal Medicine Cardiovascular Disease
DX: I48.0 Paroxysmal atrial fibrillation (principal); Z79.01 Long term (current) use of anticoagulants
CPT/HCPCS: 36415; 85610

== ENCOUNTER 2022-10-27 11:25 | Outpatient (RCR) | payer MEDICARE, SELFPAY ==
[2022-09-28 01:12] VITALS: BMI 24.7
[2022-09-29 11:00] LABS: International Normalized Ratio 1.8; Prothrombin Time (Protime)PT. 21.4 SECONDS (11.7-14.9)
[2022-10-13 11:35] LABS: International Normalized Ratio 1.7; Prothrombin Time (Protime)PT. 19.8 SECONDS (11.7-14.9)
[2022-10-27 12:46] LABS: Prothrombin Time (Protime)PT. 22.6 SECONDS (11.7-14.9)
== END 2022-10-27 18:00 | disposition home or self-care (01) ==
LOC: LAB 11:25
PROVIDERS: Family Provider Internal Medicine; PCP Internal Medicine; Referring Provider Internal Medicine Cardiovascular Disease; Visit Provider Internal Medicine Cardiovascular Disease
DX: I48.0 Paroxysmal atrial fibrillation (principal); Z79.01 Long term (current) use of anticoagulants
CPT/HCPCS: 36415; 85610

== ENCOUNTER 2022-11-17 10:52 | Outpatient (RCR) | payer MEDICARE, SELFPAY ==
[2022-10-28 23:29] VITALS: BMI 24.7
[2022-11-17 11:20] LABS: International Normalized Ratio 2.5; Prothrombin Time (Protime)PT. 27.6 SECONDS (11.7-14.9)
== END 2022-11-17 18:00 | disposition home or self-care (01) ==
LOC: LAB 10:52
PROVIDERS: Family Provider Internal Medicine; PCP Internal Medicine; Referring Provider Internal Medicine Cardiovascular Disease; Visit Provider Internal Medicine Cardiovascular Disease
DX: I48.0 Paroxysmal atrial fibrillation (principal); Z79.01 Long term (current) use of anticoagulants
CPT/HCPCS: 36415; 85610

== ENCOUNTER 2022-12-15 10:55 | Outpatient (RCR) | payer MEDICARE, SELFPAY ==
[2022-11-28 04:22] VITALS: BMI 24.7
[2022-12-15 12:44] LABS: International Normalized Ratio 2.6; Prothrombin Time (Protime)PT. 27.8 SECONDS (11.7-14.9)
== END 2022-12-15 18:00 | disposition home or self-care (01) ==
LOC: LAB 10:55
PROVIDERS: Family Provider Internal Medicine; PCP Internal Medicine; Referring Provider Internal Medicine Cardiovascular Disease; Visit Provider Internal Medicine Cardiovascular Disease
DX: I48.0 Paroxysmal atrial fibrillation (principal); Z79.01 Long term (current) use of anticoagulants
CPT/HCPCS: 36415; 85610

== ENCOUNTER 2023-01-26 10:34 | Outpatient (RCR) | payer MEDICARE, SELFPAY ==
[2022-12-28 22:44] VITALS: BMI 24.7
[2023-01-12 12:59] LABS: International Normalized Ratio 1.9; Prothrombin Time (Protime)PT. 21.8 SECONDS (11.7-14.9)
[2023-01-26 12:44] LABS: International Normalized Ratio 2.8; Prothrombin Time (Protime)PT. 29.5 SECONDS (11.7-14.9)
== END 2023-01-27 18:00 | disposition home or self-care (01) ==
LOC: LAB 10:34
PROVIDERS: Family Provider Internal Medicine; PCP Internal Medicine; Referring Provider Internal Medicine Cardiovascular Disease; Visit Provider Internal Medicine Cardiovascular Disease
DX: Z79.01 Long term (current) use of anticoagulants
CPT/HCPCS: 36415; 85610

== ENCOUNTER → 2023-02-04 | Outpatient (CLI) | payer MEDICARE, SELFPAY ==
--- NOTE | 2023-02-04 12:52 | ECHOD_ITS ---
Reason For Study: MVP Procedure This was a 2D Doppler, Color Flow transthoracic echocardiogram. Exam performed in department. Left Ventricle Normal LV size. Mild concentric left ventricular hypertrophy. Left ventricular systolic function is normal. The estimated ejection fraction is 60 %. No regional wall motion abnormalities noted. Right Ventricle Normal RV size. ICD or pacer leads identified within the right ventricle. Normal systolic function. Atria The left atrium is mildly enlarged. Normal right atrium. Mitral Valve Bileaflet diffuse mitral valve thickening. Mild mitral valve prolapse. Mild (1+) eccentric mitral valve insufficiency. Tricuspid Valve Normal tricuspid valve. Mild tricuspid valve insufficiency. Pulmonary artery systolic pressure is 30 mmHg. Aortic Valve Normal aortic valve. Pulmonic Valve Normal pulmonic valve. Great Vessels Normal aortic root. The pulmonary artery is normal size. Normal inferior vena cava. Pericardium/Pleural No pericardial effusion. MMode/2D Measurements & Calculations LVIDd: 4.0 cm IVSd: 1.5 cm Ao root diam: 3.2 cm LVIDs: 2.7 cm LVPWd: 1.2 cm LA dimension: 4.0 cm RVDd: 3.6 cm FS: 32.5 % LAV(MOD-sp4): 70.5 ml LA A4 area: 23.5 cm2 RA A4 area: 15.9 cm2 Time Measurements MV dec time: 0.25 sec Doppler Measurements & Calculations MV E max adolfo: 54.0 cm/sec Lat Peak E' Adolfo: 5.1 cm/sec Med Peak E' Adolfo: 5.7 cm/sec MV A max adolfo: 97.5 cm/sec E/E' lat: 10.6 E/E' med: 9.4 MV E/A: 0.55 MV V2 max: 105.6 cm/sec MV P1/2t max adolfo: 62.7 cm/sec Ao V2 max: 69.8 cm/sec MV max P.5 mmHg MV P1/2t: 96.9 msec Ao max P.9 mmHg MV V2 mean: 49.7 cm/sec MV dec slope: 189.6 cm/sec2 MV mean P.2 mmHg MVA(P1/2t): 2.3 cm2 MV V2 VTI: 29.0 cm LV V1 max: 62.9 cm/sec MR max adolfo: 546.4 cm/sec PA V2 max: 79.2 cm/sec LV V1 max P.6 mmHg MR max P.4 mmHg TR max adolfo: 258.0 cm/sec TR max P.6 mmHg ECHO/Echo Complete Interpretation Summary Normal LV size. Left ventricular systolic function is normal. The estimated ejection fraction is 60 %. Bileaflet diffuse mitral valve thickening. Mild mitral valve prolapse. Mild concentric left ventricular hypertrophy. Ordering Physician: Kathy Delvalle Referring Physician: Kathy Delvalle Performed By: Fermin Wayne, RCS
== END | disposition home or self-care (01) ==
LOC: CVS 12:51
PROVIDERS: PCP Internal Medicine; Referring Provider Nurse Practitioner Gerontology; Visit Provider Nurse Practitioner Gerontology
DX: I34.0 Nonrheumatic mitral (valve) insufficiency (principal); I34.1 Nonrheumatic mitral (valve) prolapse
CPT/HCPCS: 93306

== ENCOUNTER 2023-02-23 11:50 | Outpatient (RCR) | payer MEDICARE, SELFPAY ==
[2023-01-28 04:02] VITALS: BMI 24.7
[2023-02-23 12:44] LABS: Prothrombin Time (Protime)PT. 44.4 SECONDS (11.7-14.9)
[2023-02-23 13:13] LABS: International Normalized Ratio 4.6
== END 2023-02-27 18:00 | disposition home or self-care (01) ==
LOC: LAB 11:50
PROVIDERS: Family Provider Internal Medicine; PCP Internal Medicine; Referring Provider Internal Medicine Cardiovascular Disease; Visit Provider Internal Medicine Cardiovascular Disease
DX: Z79.01 Long term (current) use of anticoagulants (principal); I48.0 Paroxysmal atrial fibrillation
CPT/HCPCS: 36415; 85610

== ENCOUNTER 2023-03-30 09:48 | Outpatient (RCR) | payer MEDICARE, SELFPAY ==
[2023-02-27 23:21] VITALS: BMI 24.7
[2023-03-01 16:47] LABS: International Normalized Ratio 3.4; Prothrombin Time (Protime)PT. 34.7 SECONDS (11.7-14.9)
[2023-03-09 12:49] LABS: International Normalized Ratio 3.1; Prothrombin Time (Protime)PT. 32.2 SECONDS (11.7-14.9)
[2023-03-23 11:33] LABS: Prothrombin Time (Protime)PT. 39.5 SECONDS (11.7-14.9)
[2023-03-30 10:44] LABS: International Normalized Ratio 2.2; Prothrombin Time (Protime)PT. 24.5 SECONDS (11.7-14.9)
== END 2023-03-30 18:00 | disposition home or self-care (01) ==
LOC: LAB 09:48
PROVIDERS: Nurse Practitioner Gerontology; Family Provider Internal Medicine; PCP Internal Medicine; Referring Provider Internal Medicine Cardiovascular Disease; Visit Provider Internal Medicine Cardiovascular Disease
DX: Z79.01 Long term (current) use of anticoagulants (principal); I48.0 Paroxysmal atrial fibrillation
CPT/HCPCS: 36415; 85610

== ENCOUNTER 2023-04-13 10:41 | Outpatient (RCR) | payer MEDICARE, SELFPAY ==
[2023-03-30 22:47] VITALS: BMI 24.7
[2023-04-13 11:12] LABS: Prothrombin Time (Protime)PT. 23.1 SECONDS (11.7-14.9)
== END 2023-04-28 18:00 | disposition home or self-care (01) ==
LOC: LAB 10:41
PROVIDERS: Family Provider Internal Medicine; PCP Internal Medicine; Referring Provider Internal Medicine Cardiovascular Disease; Visit Provider Internal Medicine Cardiovascular Disease
DX: Z79.01 Long term (current) use of anticoagulants (principal)
CPT/HCPCS: 36415; 85610

== ENCOUNTER 2023-05-11 10:09 | Outpatient (RCR) | payer MEDICARE, SELFPAY ==
[2023-04-29 02:35] VITALS: BMI 24.7
[2023-05-11 11:52] LABS: International Normalized Ratio 2.2; Prothrombin Time (Protime)PT. 24.6 SECONDS (11.7-14.9)
== END 2023-05-29 01:26 | disposition home or self-care (01) ==
LOC: LAB 10:09
PROVIDERS: Family Provider Internal Medicine; PCP Internal Medicine; Referring Provider Internal Medicine Cardiovascular Disease; Visit Provider Internal Medicine Cardiovascular Disease
DX: Z79.01 Long term (current) use of anticoagulants (principal); I48.0 Paroxysmal atrial fibrillation
CPT/HCPCS: 36415; 85610

== ENCOUNTER 2023-06-08 10:36 | Outpatient (RCR) | payer MEDICARE, SELFPAY ==
[2023-05-29 01:26] VITALS: BMI 24.7
[2023-06-08 11:24] LABS: International Normalized Ratio 2.4; Prothrombin Time (Protime)PT. 25.9 SECONDS (11.7-14.9)
== END 2023-06-28 23:53 | disposition home or self-care (01) ==
LOC: LAB 10:36
PROVIDERS: Family Provider Internal Medicine; PCP Internal Medicine; Referring Provider Internal Medicine Cardiovascular Disease; Visit Provider Internal Medicine Cardiovascular Disease
DX: Z79.01 Long term (current) use of anticoagulants (principal); I48.0 Paroxysmal atrial fibrillation
CPT/HCPCS: 36415; 85610

== ENCOUNTER 2023-07-06 11:50 | Outpatient (RCR) | payer MEDICARE, SELFPAY ==
[2023-06-28 23:53] VITALS: BMI 24.7
[2023-07-06 13:09] LABS: International Normalized Ratio 2.3; Prothrombin Time (Protime)PT. 25.2 SECONDS (11.7-14.9)
== END 2023-07-06 18:00 | disposition home or self-care (01) ==
LOC: LAB 11:50
PROVIDERS: Family Provider Internal Medicine; PCP Internal Medicine; Referring Provider Internal Medicine Cardiovascular Disease; Visit Provider Internal Medicine Cardiovascular Disease
DX: Z79.01 Long term (current) use of anticoagulants (principal); I48.0 Paroxysmal atrial fibrillation
CPT/HCPCS: 36415; 85610

== ENCOUNTER → 2023-07-13 | Outpatient (CLI) | payer MEDICARE, SELFPAY ==
--- NOTE | 2023-07-13 12:04 | RAD_ITS ---
HISTORY: Amiodarone. TECHNIQUE: XR Chest 2 Views. COMPARISON: None. FINDINGS: CARDIOMEDIASTINAL BORDERS: Cardiac silhouette upper limits of normal in size with pacemaker present. Mediastinal contour unremarkable with calcification of the aorta. LUNGS: Very mild reticular scarring in the lung bases. PLEURA: No pleural effusion or pneumothorax seen. OSSEOUS STRUCTURES: Degenerative change. RAD/Chest PA and Lateral IMPRESSION: No acute cardiopulmonary process identified. Electronically Signed: Dee Arias MD at 12:17 EDT ,
[2023-07-13 12:56] LABS: ALB/GLOB Ratio 0.9 RATIO (0.9-2.4); AST(SGOT) 30 U/L (15-37); Alanine Aminotransfer ALT/SGPT 25 U/L (13-56); Albumin, Serum 3.5 g/dL (3.2-5.0); Alkaline Phosphatase 107 U/L (45-117); Anion Gap -1 (5-15); BUN 12 mg/dL (7-18); Calcium,Total 9.4 mg/dL (8.5-10.1); Chloride 107 mmol/L (98-107); Creatinine, Serum 0.86 mg/dL (0.55-1.02); EST Glomerular Filtration Rate 68 mL/min (>60); Est Glom Filt Rate - Afr Amer 82 mL/min (>60); Globulin 3.9 g/dL (2.2-4.2); Glucose 90 mg/dL (74-106); Potassium 4.2 mmol/L (3.5-5.1); Protein, Total 7.4 g/dL (6.4-8.2); Sodium Level 138 mmol/L (136-145)
== END | disposition home or self-care (01) ==
LOC: RAD 12:03
PROVIDERS: PCP Internal Medicine; Referring Provider Nurse Practitioner Gerontology; Visit Provider Nurse Practitioner Gerontology
DX: Z79.899 Other long term (current) drug therapy (principal)
CPT/HCPCS: 36415; 71046; 80053; 84443

== ENCOUNTER → 2023-07-21 | Outpatient (CLI) | payer MEDICARE, SELFPAY | END | disposition home or self-care (01) | LOC: PSN 12:03 | PROVIDERS: PCP Internal Medicine; Referring Provider Nurse Practitioner Gerontology; Visit Provider Nurse Practitioner Gerontology | DX: Z79.899 Other long term (current) drug therapy (principal) | CPT/HCPCS: 94060; 94726; 94729 ==

== ENCOUNTER 2023-08-03 10:26 | Outpatient (RCR) | payer MEDICARE, SELFPAY ==
[2023-08-01 08:30] VITALS: BMI 24.7
[2023-08-03 11:26] LABS: Prothrombin Time (Protime)PT. 22.5 SECONDS (11.7-14.9)
[2023-08-03 11:29] LABS: Thyroid Stim Hormone (TSH) 5.01 uIU/mL (0.358-3.74)
== END 2023-08-03 18:00 | disposition home or self-care (01) ==
LOC: LAB 10:26
PROVIDERS: Nurse Practitioner Gerontology; Family Provider Internal Medicine; PCP Internal Medicine; Referring Provider Internal Medicine Cardiovascular Disease; Visit Provider Internal Medicine Cardiovascular Disease
DX: Z79.01 Long term (current) use of anticoagulants (principal); I48.0 Paroxysmal atrial fibrillation
CPT/HCPCS: 36415; 84443; 85610

== ENCOUNTER 2023-08-31 10:08 | Outpatient (RCR) | payer MEDICARE, SELFPAY ==
[2023-08-29 03:59] VITALS: BMI 24.7
[2023-08-31 10:35] LABS: International Normalized Ratio 2.2; Prothrombin Time (Protime)PT. 23.9 SECONDS (11.7-14.9)
[2023-08-31 10:53] LABS: Thyroid Stim Hormone (TSH) 3.79 uIU/mL (0.358-3.74)
== END 2023-09-28 18:00 | disposition home or self-care (01) ==
LOC: LAB 10:08
PROVIDERS: Nurse Practitioner Gerontology; Family Provider Internal Medicine; PCP Internal Medicine; Referring Provider Internal Medicine Cardiovascular Disease; Visit Provider Internal Medicine Cardiovascular Disease
DX: Z79.01 Long term (current) use of anticoagulants (principal)
CPT/HCPCS: 36415; 84443; 85610

== ENCOUNTER 2023-10-05 09:50 | Outpatient (RCR) | payer MEDICARE, SELFPAY ==
[2023-09-28 22:51] VITALS: BMI 24.7
[2023-10-05 11:12] LABS: International Normalized Ratio 2.2
== END 2023-10-05 18:00 | disposition home or self-care (01) ==
LOC: LAB 09:50
PROVIDERS: Family Provider Internal Medicine; PCP Internal Medicine; Referring Provider Internal Medicine Cardiovascular Disease; Visit Provider Internal Medicine Cardiovascular Disease
DX: Z79.01 Long term (current) use of anticoagulants (principal); I48.0 Paroxysmal atrial fibrillation
CPT/HCPCS: 36415; 85610

== ENCOUNTER 2023-11-15 12:43 | Outpatient (RCR) | payer MEDICARE, SELFPAY ==
[2023-10-30 05:21] VITALS: BMI 24.7
[2023-11-02 11:56] LABS: International Normalized Ratio 1.8
[2023-11-15 13:48] LABS: International Normalized Ratio 2.5; Prothrombin Time (Protime)PT. 26.7 SECONDS (11.7-14.9)
== END 2023-11-15 18:00 | disposition home or self-care (01) ==
LOC: LAB 12:43
PROVIDERS: Family Provider Internal Medicine; PCP Internal Medicine; Referring Provider Internal Medicine Cardiovascular Disease; Visit Provider Internal Medicine Cardiovascular Disease
DX: Z79.01 Long term (current) use of anticoagulants (principal); I48.0 Paroxysmal atrial fibrillation
CPT/HCPCS: 36415; 85610

== ENCOUNTER 2023-12-14 10:13 | Outpatient (RCR) | payer MEDICARE, SELFPAY ==
[2023-11-29 04:37] VITALS: BMI 24.7
[2023-12-14 11:31] LABS: International Normalized Ratio 1.9; Prothrombin Time (Protime)PT. 21.7 SECONDS (11.7-14.9)
== END 2023-12-14 18:00 | disposition home or self-care (01) ==
LOC: LAB 10:13
PROVIDERS: Family Provider Internal Medicine; PCP Internal Medicine; Referring Provider Internal Medicine Cardiovascular Disease; Visit Provider Internal Medicine Cardiovascular Disease
DX: Z79.01 Long term (current) use of anticoagulants (principal); I48.0 Paroxysmal atrial fibrillation
CPT/HCPCS: 36415; 85610

== ENCOUNTER 2024-01-25 08:50 | Outpatient (RCR) | payer MEDICARE, SELFPAY ==
[2023-12-29 21:02] VITALS: BMI 24.7
[2024-01-11 11:18] LABS: International Normalized Ratio 1.8; Prothrombin Time (Protime)PT. 20.6 SECONDS (11.7-14.9)
[2024-01-25 09:12] LABS: International Normalized Ratio 2.1; Prothrombin Time (Protime)PT. 23.7 SECONDS (11.7-14.9)
== END 2024-01-28 18:00 | disposition home or self-care (01) ==
LOC: LAB 08:50
PROVIDERS: Family Provider Internal Medicine; PCP Internal Medicine; Referring Provider Internal Medicine Cardiovascular Disease; Visit Provider Internal Medicine Cardiovascular Disease
DX: Z79.01 Long term (current) use of anticoagulants (principal); I48.0 Paroxysmal atrial fibrillation
CPT/HCPCS: 36415; 85610

== ENCOUNTER 2024-03-27 12:07 | Outpatient (RCR) | payer MEDICARE, SELFPAY ==
[2024-01-29 01:35] VITALS: BMI 24.7
[2024-03-01 15:01] LABS: INR Fingerstick 1.9; Prothrombin Time Fingerstick 21.5 SEC (11.7-14.9)
[2024-03-14 11:00] LABS: INR Fingerstick 3.2; Prothrombin Time Fingerstick 33.2 SEC (11.7-14.9)
[2024-03-21 10:20] LABS: INR Fingerstick 2.3; Prothrombin Time Fingerstick 23.7 SEC (11.7-14.9)
[2024-03-27 12:29] LABS: INR Fingerstick 2.3; Prothrombin Time Fingerstick 25.1 SEC (11.7-14.9)
== END 2024-03-27 18:00 | disposition home or self-care (01) ==
LOC: LAB 12:07
PROVIDERS: Family Provider Internal Medicine; PCP Internal Medicine; Referring Provider Internal Medicine Cardiovascular Disease; Visit Provider Internal Medicine Cardiovascular Disease
DX: Z79.01 Long term (current) use of anticoagulants (principal); I48.0 Paroxysmal atrial fibrillation
CPT/HCPCS: 36416; 85610

== ENCOUNTER 2024-04-17 10:54 | Outpatient (RCR) | payer MEDICARE, SELFPAY ==
[2024-03-31 04:43] VITALS: BMI 24.7
[2024-04-11 11:18] LABS: INR Fingerstick 1.8; Prothrombin Time Fingerstick 18.8 SEC (11.7-14.9)
[2024-04-17 11:10] LABS: Prothrombin Time Fingerstick 22.1 SEC (11.7-14.9)
== END 2024-04-27 18:00 | disposition home or self-care (01) ==
LOC: LAB 10:54
PROVIDERS: Family Provider Internal Medicine; PCP Internal Medicine; Referring Provider Internal Medicine Cardiovascular Disease; Visit Provider Internal Medicine Cardiovascular Disease
DX: Z79.01 Long term (current) use of anticoagulants (principal)
CPT/HCPCS: 36416; 85610

== ENCOUNTER 2024-05-09 10:24 | Outpatient (RCR) | payer MEDICARE, SELFPAY ==
[2024-04-28 07:36] VITALS: BMI 24.7
[2024-05-11 06:25] LABS: INR Fingerstick 2.4; Prothrombin Time Fingerstick 25.6 SEC (11.7-14.9)
== END 2024-05-09 18:00 | disposition home or self-care (01) ==
LOC: LAB 10:24
PROVIDERS: Family Provider Internal Medicine; PCP Internal Medicine; Referring Provider Internal Medicine Cardiovascular Disease; Visit Provider Internal Medicine Cardiovascular Disease
DX: Z79.01 Long term (current) use of anticoagulants (principal); I48.0 Paroxysmal atrial fibrillation
CPT/HCPCS: 36416; 85610

== ENCOUNTER 2024-06-06 10:04 | Outpatient (RCR) | payer MEDICARE, SELFPAY ==
[2024-05-28 22:46] VITALS: BMI 24.7
[2024-06-06 10:10] LABS: INR Fingerstick 2.3
== END 2024-06-27 18:00 | disposition home or self-care (01) ==
LOC: LAB 10:04
PROVIDERS: Family Provider Internal Medicine; PCP Internal Medicine; Referring Provider Internal Medicine Cardiovascular Disease; Visit Provider Internal Medicine Cardiovascular Disease
DX: Z79.01 Long term (current) use of anticoagulants (principal); I48.0 Paroxysmal atrial fibrillation
CPT/HCPCS: 36416; 85610

== ENCOUNTER 2024-07-04 12:29 | Outpatient (RCR) | payer MEDICARE, SELFPAY ==
[2024-06-27 22:06] VITALS: BMI 24.7
[2024-07-04 12:37] LABS: INR Fingerstick 2.5; Prothrombin Time Fingerstick 26.9 SEC (11.7-14.9)
== END 2024-07-04 18:00 | disposition home or self-care (01) ==
LOC: LAB 12:29
PROVIDERS: Family Provider Internal Medicine; PCP Internal Medicine; Referring Provider Internal Medicine Cardiovascular Disease; Visit Provider Internal Medicine Cardiovascular Disease
DX: Z79.01 Long term (current) use of anticoagulants (principal); I48.0 Paroxysmal atrial fibrillation
CPT/HCPCS: 36416; 85610

== ENCOUNTER 2024-09-26 12:29 | Outpatient (RCR) | payer MEDICARE, SELFPAY ==
[2024-07-29 19:14] VITALS: BMI 24.7
[2024-08-29 11:33] LABS: INR Fingerstick 2.2
[2024-09-28 09:09] LABS: INR Fingerstick 2.5
== END 2024-09-27 21:33 | disposition home or self-care (01) ==
LOC: LAB 12:29
PROVIDERS: Family Provider Internal Medicine; PCP Internal Medicine; Referring Provider Internal Medicine Cardiovascular Disease; Visit Provider Internal Medicine Cardiovascular Disease
DX: Z79.01 Long term (current) use of anticoagulants (principal); I48.0 Paroxysmal atrial fibrillation
CPT/HCPCS: 36416; 85610

== ENCOUNTER 2024-10-24 10:49 | Outpatient (RCR) | payer MEDICARE, SELFPAY ==
[2024-10-24 10:59] LABS: INR Fingerstick 3.5
== END 2024-10-24 18:00 | disposition home or self-care (01) ==
LOC: LAB 10:49
PROVIDERS: Family Provider Internal Medicine; PCP Internal Medicine; Referring Provider Internal Medicine Cardiovascular Disease; Visit Provider Internal Medicine Cardiovascular Disease
DX: Z79.01 Long term (current) use of anticoagulants (principal); I48.0 Paroxysmal atrial fibrillation
CPT/HCPCS: 36416; 85610

== ENCOUNTER 2024-11-21 10:21 | Outpatient (RCR) | payer MEDICARE, SELFPAY ==
[2024-11-07 10:24] LABS: INR Fingerstick 2.6
[2024-11-21 10:39] LABS: INR Fingerstick 2.8
== END 2024-11-27 18:00 | disposition home or self-care (01) ==
LOC: LAB 10:21
PROVIDERS: Family Provider Internal Medicine; PCP Internal Medicine; Referring Provider Internal Medicine Cardiovascular Disease; Visit Provider Internal Medicine Cardiovascular Disease
DX: Z79.01 Long term (current) use of anticoagulants (principal); I48.0 Paroxysmal atrial fibrillation
CPT/HCPCS: 36416; 85610

== ENCOUNTER 2024-12-19 10:37 | Outpatient (RCR) | payer MEDICARE, SELFPAY ==
[2024-12-19 10:47] LABS: INR Fingerstick 3.1
== END 2024-12-19 18:00 | disposition home or self-care (01) ==
LOC: LAB 10:37
PROVIDERS: Family Provider Internal Medicine; PCP Internal Medicine; Referring Provider Internal Medicine Cardiovascular Disease; Visit Provider Internal Medicine Cardiovascular Disease
DX: Z79.01 Long term (current) use of anticoagulants (principal); I48.0 Paroxysmal atrial fibrillation
CPT/HCPCS: 36416; 85610

== ENCOUNTER 2025-01-09 11:40 | Outpatient (RCR) | payer MEDICARE, SELFPAY ==
[2025-01-09 11:46] LABS: INR Fingerstick 2.3
== END 2025-01-27 18:00 | disposition home or self-care (01) ==
LOC: LAB 11:40
PROVIDERS: Family Provider Internal Medicine; PCP Internal Medicine; Referring Provider Internal Medicine Cardiovascular Disease; Visit Provider Internal Medicine Cardiovascular Disease
DX: Z79.01 Long term (current) use of anticoagulants (principal); I48.0 Paroxysmal atrial fibrillation
CPT/HCPCS: 36416; 85610

== ENCOUNTER → 2025-01-16 | Outpatient (CLI) | payer MEDICARE, SELFPAY ==
--- NOTE | 2025-01-16 11:55 | RAD_ITS ---
PROCEDURE: CHEST PA AND LATERAL 01/16/2025 REASON FOR EXAM: AMIODARONE THERAPY TECHNIQUE: Procedure Code: RADCXR Modality: DX Procedure: CHEST PA AND LATERAL COMPARISON: 07/13/2023 FINDINGS: Right chest pacer. No focal consolidation. Very mild reticular scarring in the lung bases. No pleural effusion or pneumothorax. Cardiac silhouette is within normal limits. Calcified aortic arch. No acute fractures. RAD/Chest PA and Lateral IMPRESSION: No focal consolidations. Very mild reticular scarring in the lung bases, stabl e. Reading Location: [id number]
[2025-01-16 14:04] LABS: AST(SGOT) 31 U/L (<=31); Alanine Aminotransfer ALT/SGPT 20 U/L (<=34); Albumin, Serum 4.2 g/dL (3.4-4.8); Alkaline Phosphatase 101 U/L (35-104); Anion Gap 8 (5-15); BUN 18 mg/dL (4-19); BUN/Creat Ratio 17.9 RATIO (10-20); Calcium,Total 9.8 mg/dL (7.6-11.0); Carbon Dioxide 26.4 mmol/L (21.0-32.0); Chloride 105 mmol/L (98-108); Cholesterol 158 mg/dL (<=200); Globulin 3.2 g/dL (2.2-4.2); Glucose 88 mg/dL (70-99); Low Density Lipoprotein Calc. 75 mg/dL; Potassium 4.6 mmol/L (3.3-5.1); Triglycerides 107 mg/dL; Very Low Density Lipoprotein 21 mg/dL (5-40); cholesterol:hdl ratio screen 2.48
== END | disposition home or self-care (01) ==
LOC: RAD 11:50
PROVIDERS: PCP Internal Medicine; Referring Provider Student in an Organized Health Care Education/Training Program; Visit Provider Student in an Organized Health Care Education/Training Program
DX: E78.5 Hyperlipidemia, unspecified (principal); Z79.899 Other long term (current) drug therapy
CPT/HCPCS: 36415; 71046; 80053; 80061; 84443

== ENCOUNTER 2025-02-06 09:41 | Outpatient (RCR) | payer MEDICARE, SELFPAY ==
[2025-02-06 09:57] LABS: INR Fingerstick 2.2
== END 2025-02-06 18:00 | disposition home or self-care (01) ==
LOC: LAB 09:41
PROVIDERS: Family Provider Internal Medicine; PCP Internal Medicine; Referring Provider Internal Medicine Cardiovascular Disease; Visit Provider Internal Medicine Cardiovascular Disease
DX: Z79.01 Long term (current) use of anticoagulants (principal); I48.0 Paroxysmal atrial fibrillation
CPT/HCPCS: 36416; 85610